=== PATIENT | female | born 1990 | race Two or more races ===

== ENCOUNTER 2023-09-05 16:47 | Inpatient (IN) | payer MEDICAID, OTHER, SELFPAY ==
--- OUTSIDE RECORDS SUMMARY | 2023-09-05 16:50 | XMS_ITS | Continuity of Care Document ---
Author Organization [facility] Address [address] [place] [address]- Care Team Providers Care Belt Polisher Name Role Phone Bahman Moise NP Primary Care Physician Encounter [facility] ACCT R [id number] Date(s): 05/22/23 - 06/21/[address] [address]- Attending Physician: Rojas Angeles Admitting Physician: AdmtrRojas Referring Physician: AdmtrRojas Allergies, Adverse Reactions, Alerts No Known Allergies Immunizations Given and Recorded Vaccine Date Status Refusal Reason tetanus/diphtheria/pertussis, acel(Tdap) 01/06/21 Given Human Papillomavirus Vaccine 08/22/18 Given Human Papillomavirus Vaccine 04/18/18 Given Human Papillomavirus Vaccine 12/27/17 Given Medications bacitracin topical 500 u/gm ointment 1 application, Topically, 3 times a day, for 7 days, apply to affected skin, # 30 Gm, 0 Refills, Acute 06/26/23 10:58:00 EDT, 06/19/23 10:58:00 EDT, Ointment, [facility], Partial fill upon patient request if the prescription is for a tyron... Start Date: 06/19/23 Stop Date: 06/26/23 Status: Ordered Mirena 52 mg intrauteral device 1 each = 52 mg, Intrauterine, Once, # 1 each, 0 Refills, Soft Stop, 04/24/13 8:49:46, 1 each Intrauterine Once Start Date: 04/24/13 Status: Ordered Truvada 200 mg-300 mg oral tablet 1 tablet, By Mouth, Daily, # 90 tablet, 4 Refills, Maintenance, 04/05/22 11:01:00 EST, Tablet, [id number], Partial fill upon patient request if the prescription is for a schedule II opioid drug., 1 tablet By Mouth Daily, 169, cm, 04/05/22 10:2... Start Date: 04/05/22 Status: Ordered Problem List Condition Confirmation Course Effective Dates Status Health St at[facility] Informant Light cigarette smoker (1-9 cigs/day) Confirmed Active Obese class I Confirmed Active Social History Social History Type Response Smoking Status Current every day francisca oker; Type: Cigarettes; Interested in cessation: Yes; Tobacco use times per day: 5 daily; Number of years: 6; Started at age: 19; entered on: 09/19/16 Sex Patient Care team information Care Team Personnel Name: Bahman Moise NP Position: Reference Physician Member Role: PCP Care Team Related Persons Name: ABDULLAHI GREGG Address: home [address] [place] [address] Name: TYREE SAUCEDA Address: home [address] [place] [address] Name: ERIC TOPETE Address: home [address] [place] [address]
--- OUTSIDE RECORDS SUMMARY | 2023-09-05 16:50 | XMS_ITS | Continuity of Care Document ---
Author Organization [facility] ter Address [address] [place] [address]- Care Team Providers Care Unix Systems Administrator Name Role Phone Jose Maria CALLAHAN, Bahman Primary Care Physician Encounter [facility] Date(s): 01/06/21 - 01/06/[address] [address]- Encounter Diagnosis Alcohol intoxication(Final) - 01/06/21 Discharge Disposition: A-D/C Home Attending Physician: Benedict Brooks MD Admitting Physician: Benedict Brooks MD Referring Physician: Not on Staff, Referring MD Allergies, Adverse Reactions, Alerts Substance Reaction Severity Status NKA Active Immunizations Given and Recorded Vaccine Date Status Refusal Reason tetanus/diphtheria/pertussis, acel(Tdap) 01/06/21 Given Human Papillomavirus Vaccine 08/22/18 Given Human Papillomavirus Vaccine 04/18/18 Given Human Papillomavirus Vaccine 12/27/17 Given Medications Mirena 52 mg intrauteral device 1 each = 52 mg, Intrauterine, Once, # 1 each, 0 Refills, Soft Stop, 04/24/13 8:49:46, 1 each Intrauterine Once Start Date: 04/24/13 Status: Ordered Problem List Condition Effective Dates Status Health Status Inform ant Light cigarette smoker (1-9 cigs/day)(Confirmed) Active Vital Signs Most recent to oldest [Reference Range]: 1 2 3 Oxygen Saturation [94-100 %] 100 % (01/06/21 8:00 AM) 99 % (01/06/21 6:00 AM) 98 % (01/06/21 4:05 AM) Pulse Rate [55-90 bpm] 95 bpm *H* (01/06/21 8:00 AM) 97 bpm *H* (01/06/21 6:00 AM) 98 bpm *H* (01/06/21 4:05 AM) Blood Pressure [90-138/55-84 mm Hg] 109/61mm Hg (01/06/21 8:00 AM) 122/65mm Hg (01/06/21 6:00 AM) 125/68mm Hg (01/06/21 4:05 AM) Respiratory Rate [16-30 br/min] 18 br/min (01/06/21 8:00 AM) 16 br/min (01/06/21 6:00 AM) 15 br/min *L* (01/06/21 4:05 AM) Temperature [96.8-100.4 DegF] 97.4 DegF (01/06/21 6:00 AM) 97.6 DegF (01/06/21 4:05 AM) Mode of Delivery (Oxygen) Room air (01/06/21 8:00 AM) Room air (01/06/21 6:00 AM) Room air (01/06/21 4:05 AM) Blood pressure sites Arm, left (01/06/21 8:00 AM) Arm, left (01/06/21 6:00 AM) Arm, left (01/06/21 4:05 AM) Temperature Route Axillary (01/06/21 6:00 AM) Axillary (01/06/21 4:05 AM) Social History Social History Type Response Smoking Status Current every day francisca chang; Type: Cigarettes; Interested in cessation: Yes; Tobacco use times per day: 5 daily; Number of years: 6; Started at age: 19; entered on: 09/19/16 Sex
--- OUTSIDE RECORDS SUMMARY | 2023-09-05 16:50 | XMS_ITS | Continuity of Care Document ---
Author Organization [facility] Address [address] [place] [address]- Care Team Providers Care Scrap Stripper Hand Name Role Phone Jose Maria CALLAHAN, Bahman Primary Care Physician Unavail able [facility]counter [facility] Date(s): 10/05/19 - 11/04/19 [facility] [address] [address]- [facility] Allergies, Adverse Reactions, Alerts Substance Reaction Severity Status NKA Active Immunizations Given and Recorded Vaccine Date Status Refusal Reason Human Papillomavirus Vaccine 08/22/18 Given Human Papillomavirus Vaccine 04/18/18 Given Human Papillomavirus Vaccine 12/27/17 Given Medications Flagyl 500 mg oral tablet 4 tablet = 2,000 mg, By Mouth, Once, # 4 tablet, 0 Refills, Soft Stop, 01/03/17 16:56:41 Start Date: 01/03/17 Status: Ordered Mirena 52 mg intrauteral device 1 each = 52 mg, Intrauterine, Once, # 1 each, 0 Refills, Soft Stop, 04/24/13 8:49:46, 1 each Intrauterine Once Start Date: 04/24/13 Status: Ordered Problem List Condition Effective Dates Status Health Status Inform ant Light cigarette smoker (1-9 cigs/day)(Confirmed) Active Social History Social History Type Response Smoking Status Current every day sm oker; Type: Cigarettes; Interested in cessation: Yes; Tobacco use times per day: 5 daily; Number of years: 6; Started at age: 19; entered on: 09/19/16 Sex
--- OUTSIDE RECORDS SUMMARY | 2023-09-05 16:50 | XMS_ITS | Continuity of Care Document ---
Author Organization [facility] Address [address] [place] [address]- Care Team Providers Care Keg Washer Name Role Phone Jose Maria CALLAHAN, Bahman Primary Care Physician [facility] Date([facility]): 08/10/20 - [facility] [address] [address]- Allergies, Adverse Reactions, Alerts Substance Reaction Severity [...]
--- OUTSIDE RECORDS SUMMARY | 2023-09-05 16:50 | XMS_ITS | Continuity of Care Document ---
Author Organization [facility] [facility] Address [address] [place] [address], [place] [address]- Care Team Providers Care Skip Load Driver Name Role Phone Bahman Moise NP Primary Care Physician [phone] [id number] Date[facility] - [facility]09/23 [facility] [address] [facility] [place], [place] [address] Allergies, Adverse Reactions, Alerts No Known Allergies [...] Persons Name: ABDULLAHI GREGG Address: home [address] [place] [address] Name: TYREE SAUCEDA Address: home [address] [place] [address] Name: ERIC TOPETE Address: [address] [place] [address]
--- OUTSIDE RECORDS SUMMARY | 2023-09-05 16:50 | XMS_ITS | Continuity of Care Document ---
Author Organization [facility] Address [address] [place] [address]- Care Team Providers Care Highway Traffic Control Technician Name Role Phone Jose Maria CALLAHAN, Bahman Primary Care Physician [phone] Encounter [facility] Date(s): 08/17/20 - 09/16/20 [facility] [address] [address]- Allergies, Adverse Reactions, Alerts Substance Reaction Severity [...]
--- OUTSIDE RECORDS SUMMARY | 2023-09-05 16:50 | XMS_ITS | Continuity of Care Document ---
Author Organization [facility] Address [address] [place] [address]- Care Team Providers Care Cyber Defense Analyst Name Role Phone Bahman Moise NP Primary Care Physician Encounter [facility] Date(s): 02/04/23 - 03/06/[address] [address] Allergies, Adverse Reactions, Alerts No Known Allergies [...] Persons Name: ABDULLAHI GREGG Address: home [address] [place] [address] Name: TYREE SAUCEDA Address: home [address] [place] [address] Name: ERIC TOPETE Address: home [address] [place] [address]
--- OUTSIDE RECORDS SUMMARY | 2023-09-05 16:50 | XMS_ITS | Continuity of Care Document ---
Author Organization [facility] Address [address] [place] [address]- Care Team Providers Care Radiation Engineer Name Role Phone Jose Maria CALLAHAN, Bahman Primary Care Physician Encounter [facility] Date(s): 01/31/21 - 04/15/21 [facility] [address] [address] Attending Physician: Not on Staff, Attending MD Allergies, Adverse Reactions, Alerts No Known Allergies [...]
--- OUTSIDE RECORDS SUMMARY | 2023-09-05 16:50 | XMS_ITS | Continuity of Care Document ---
Author Organization [facility] Address [address] [place] [address]- Care Team Providers Care Marketing Officer Name Role Phone Bahman Moise NP Primary Care Physician [id number] Date(s): 05/20/23 - 06/21/[address] [address] Attending Physician: Not on Staff, Attending [...] 06/26/23 10:58:00 EDT, 06/19/23 10:58:00 EDT, Ointment, [facility], Partial fill upon patient request [...] 4 Refills, Maintenance, 04/05/22 11:01:00 EST, Tablet, [id number], Partial fill upon patient request if [...] Persons Name: ABDULLAHI GREGG Address: home [address] [place] [address] Name: TYREE SAUCEDA Address: home [address] [place] [address] Name: ERIC TOPETE Address: [address] [place] [address]
--- OUTSIDE RECORDS SUMMARY | 2023-09-05 16:50 | XMS_ITS | Continuity of Care Document ---
Author Organization [facility] Address [address] [place] [address]- Care Team Providers Care Dewaterer Operator Name Role Phone Bahman Moise NP Primary Care Physician [phone] Encounter [facility] Date(s): 04/05/22 - 05/05/[address] [address]- Attending Physician: Rojas Angeles Admitting Physician: Rojas Angeles Referring Physician: AdmtrRojas Allergies, Adverse Reactions, Alerts [...] Related Persons Name: ABDULLAHI GREGG Address: home [address] [place] [address] Name: TYREE SAUCEDA Address: [place] [address] Name: ERIC TOPETE Address: home [address] [place] [address]
--- OUTSIDE RECORDS SUMMARY | 2023-09-05 16:50 | XMS_ITS | Continuity of Care Document ---
Author Organization [facility] Address [address] [place] [address]- Care Team Providers Care Rug Dyer Helper Name Role Phone Bahman Moise NP Primary Care Physician Encounter [facility] Date(s): 02/19/23 - 06/19/[address] [address] Attending Physician: Not on Staff, Attending MD [...] 06/26/23 10:58:00 EDT, 06/19/23 10:58:00 EDT, Ointment, [facility], Partial fill upon patient [...] 4 Refills, Maintenance, 04/05/22 11:01:00 EST, Tablet, [id number], Partial fill upon patient request if [...] Persons Name: ABDULLAHI GREGG Address: [address] [place] [address] Name: TYREE SAUCEDA Address: [address] [place] [address] Name: ERIC TOPETE Address: home [address] [place] [address]
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
--- OUTSIDE RECORDS SUMMARY | 2023-09-05 16:50 | XMS_ITS | Continuity of Care Document ---
Author Organization [facility] Address [address] [place] [address]- Care Team Providers Care Building Dismantler Name Role Phone Jose Maria CALLAHAN, Bahman Primary Care Physician Encounter [facility] Date(s): 08/17/20 - 09/16/20 [facility] [address] [address] Attending Physician: Rojas Angeles Admitting Physician: Rojas Angeles Referring Physician: Rojas Angeles Allergies, Adverse Reactions, Alerts Substance Reaction Severity [...]
--- OUTSIDE RECORDS SUMMARY | 2023-09-05 16:50 | XMS_ITS | Continuity of Care Document ---
Author Organization [facility] ter Address [address] [place] [address]- Care Team Providers Care Printed Circuit Board Panels Deburrer Name Role Phone Jose Maria CALLAHAN, Bahman Primary Care Physician Encounter [facility] Date(s): 12/01/20 - 12/01/[address] [address]- Discharge Disposition: A-D/C Home Attending Physician: Montrell Alex MD Admitting Physician: Montrell Alex MD Referring Physician: Not on Staff, Referring [...] 3 Oxygen Saturation [94-100 %] 100 % (12/01/20 12:31 PM) 99 % (12/01/20 6:12 AM) 99 % (12/01/20 4:05 AM) Pulse Rate [55-90 bpm] 72 bpm (12/01/20 12:31 PM) 84 bpm (12/01/20 6:12 AM) 107 bpm *H* (12/01/20 4:05 AM) Blood Pressure [90-138/55-84 mm Hg] 122/79mm Hg (12/01/20 12:31 PM) 114/68mm Hg (12/01/20 6:12 AM) 134/79mm Hg (12/01/20 4:05 AM) Respiratory Rate [16-30 br/min] 16 br/min (12/01/20 12:31 PM) 16 br/min (12/01/20 6:12 AM) 18 br/min (12/01/20 4:05 AM) Temperature [96.8-100.4 DegF] 97.4 DegF (12/01/20 12:31 PM) 98.6 DegF (12/01/20 4:05 AM) Mode of Delivery (Oxygen) Room air (12/01/20 12:31 PM) Room air (12/01/20 6:12 AM) Room air (12/01/20 4:05 AM) Blood pressure sites Arm, left (12/01/20 12:31 PM) Temperature Route Oral (12/01/20 12:31 PM) Social History Social History Type Response Smoking Status Current every day francisca chang; Type: Cigarettes; Interested in cessation: Yes; Tobacco use times per day: 5 daily; Number of years: 6; Started at age: 19; entered on: 09/19/16 Sex
--- OUTSIDE RECORDS SUMMARY | 2023-09-05 16:50 | XMS_ITS | Continuity of Care Document ---
Author Organization [facility] Address [address] [facility], [address] [place] [address]- Care Team Providers Care Manufacturing Inspector Name Role Phone Jose Maria CALLAHAN, Bahman Primary Care Physician Encounter [facility] Date(s): 04/24/21 - 05/24/21 [facility] [address] [facility] [place], [place] [address] Allergies, Adverse Reactions, Alerts No Known [...] ant Light cigarette smoker (1-9 cigs/day)(Confirmed) Active Obese class I(Confirmed) Active Social History Social History Type Response Smoking Status Current every day sm oker; Type: Cigarettes; Interested in cessation: Yes; Tobacco use times per day: 5 daily; Number of years: 6; Started at age: 19; entered on: 09/19/16 Sex
--- OUTSIDE RECORDS SUMMARY | 2023-09-05 16:50 | XMS_ITS | Continuity of Care Document ---
Author Organization [facility] Address [address] [place] [address]- Care Team Providers Care Psychological Anthropologist Name Role Phone Jose Maria CALLAHAN, Bahman Primary Care Physician Encounter [facility] Date(s): 10/05/19 - 12/10/19 [facility] [address] [address]- [facility] Attending Physician: Not on Staff, Attending MD Allergies, Adverse Reactions, Alerts Substance Reaction [...]
--- OUTSIDE RECORDS SUMMARY | 2023-09-05 16:50 | XMS_ITS | Continuity of Care Document ---
Author Organization [facility] Address [address] [place] [address]- Care Team Providers Care Procurement Intern Name Role Phone Jose Maria CALLAHAN, Bahman Primary Care Physician Encounter [facility] Date(s): 11/10/19 - 12/10/19 [facility] [address] [address]- [facility] Attending Physician: Rojas Angeles Admitting Physician: Rojas [...]
--- OUTSIDE RECORDS SUMMARY | 2023-09-05 16:50 | XMS_ITS | Continuity of Care Document ---
Author Organization [facility] Address [address] [place] [address]- Care Team Providers Care Professor Of Spanish Name Role Phone Jose Maria CALLAHAN, Bahman Primary Care Physician [facility]counter [facility] Date(s): 04/17/21 - 06/28/21 [facility] [address] [address]- Attending Physician: Not on Staff, Attending MD [...]
--- OUTSIDE RECORDS SUMMARY | 2023-09-05 16:50 | XMS_ITS | Continuity of Care Document ---
Author Organization [facility] Address [address] [place] [address]- Care Team Providers Care Needle Loom Setter Name Role Phone Jose Maria CALLAHAN, Bahman Primary Care Physician [facility]counter [facility] Date(s): 08/10/20 - 09/16/20 [facility] [address] [address]- Attending Physician: Not on Staff, Attending MD [...]
--- OUTSIDE RECORDS SUMMARY | 2023-09-05 16:50 | XMS_ITS | Continuity of Care Document ---
Author Organization [facility] Address [address] [place] [address]- Care Team Providers Care Motion Study Analyst Name Role Phone Jose Maria CALLAHAN, Bahman Primary Care Physician En[facility] Date(s): 05/29/21 - 06/28/[address] [address] Attending Physician: Rojas Angeles Admitting Physician: Rojas Angeles Referring Physician: AdmRojas judd Allergies, Adverse Reactions, Alerts No Known Allergies [...]
--- OUTSIDE RECORDS SUMMARY | 2023-09-05 16:51 | XMS_ITS | Continuity of Care Document ---
Author Organization [facility] Address [address] [place] [address]- Care Team Providers Care Label Operator Name Role Phone Bahman Moise NP Primary Care Physician Encounter [facility] Date(s): 04/10/22 - 05/10/[address] [address] Allergies, Adverse Reactions, Alerts No Known Allergies [...] 6; Started at age: 19; entered on: 7/12/17 Sex Patient Care team information Care Team Personnel Name: Bahman Moise NP Position: Reference Physician Member Role: PCP Care Team Related Persons Name: MARYSOL ABDULLAHI Address: home [address] [place] [address] Name: TYREE SAUCEDA Address: home [address] [place] [address] Name: ERIC TOPETE Address: home [address] [place] [address]
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
--- OUTSIDE RECORDS SUMMARY | 2023-09-05 16:51 | XMS_ITS | Continuity of Care Document ---
Author Organization [facility] Address [address] [place] [address]- Care Team Providers Care Chain Mender Name Role Phone Jose Maria CALLAHAN, Bahman Primary Care Physician [phone] [facility]counter [facility] Date(s): 10/06/20 - 11/05/20 [facility] [address] [address]- Allergies, Adverse Reactions, Alerts Substance Reaction Severity [...]
--- OUTSIDE RECORDS SUMMARY | 2023-09-05 16:51 | XMS_ITS | Continuity of Care Document ---
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 superficial right wrist abrasion. Laceration was repaired in the ED. On tertiary exam there wereno new findings and cervical collar was cleared. Seen by social work who cleared her for home and she was given appropriate resources. Patient is appropriate for discharge at this time. ?? Injuries:?? Acute EtoH intoxication Cocaine use Right forehead abrasion with two cm laceration overlying the right eyebrow (repaired - see procedure note) Right radial wrist abrasion ?? Plan Discharge from ED Bacitracin to laceration No follow up needed for suture removal (dissolvable) Follow up with social work resources and trauma surgery only as needed ?? Please page??Trauma Surgery??with any additional questions or??concerns: [id number] Daniel Stratton MD. ?? Intake and Output Intake and Output Results?? No results in record. Labs Last 24 Hours BLOOD COUNT & DIFF ? Event Name?? Event Result?? Date/Time?? WBC 10.9 k/mm3 06/18/23 23:07:00 RBC 4.24 m/mm3 06/18/23 23:07:00 Hgb 13.4 Gm/dL 06/18/23 23:07:00 Hct 40.1 % 06/18/23 23:07:00 MCV 94.6 femtoliters 06/18/23 23:07:00 MCH 31.6 pg 06/18/23 23:07:00 MCHC 33.4 g/dL 06/18/23 23:07:00 Platelet Count 396 k/mm3 06/18/23 23:07:00 MPV 9 femtoliters??Low 06/18/23 23:07:00 Nucleated RBC (Automated) 0 #/100 WBC'S 06/18/23 23:07:00 ? COAG ? Event Name?? Event Result?? Date/Time?? INR 1 06/18/23 23:07:00 Protime (PT) 10.3 seconds 06/18/23 23:07:00 APTT 24.8 seconds 06/18/23 23:07:00 ? CHEM GENERAL ? Event Name?? Event Result?? Date/Time?? Sodium 140 mmol/L 06/18/23 23:07:00 Chloride 104 mmol/L 06/18/23 23:07:00 Bicarbonate Level 22 mmol/L 06/18/23 23:07:00 Anion Gap 14 06/18/23 23:07:00 Glucose Level 90 mg/dL 06/18/23 23:07:00 BUN 12 mg/dL 06/18/23 23:07:00 Creatinine-Blood 0.8 mg/dL 06/18/23 23:07:00 Amylase 47 units/L 06/18/23 23:07:00 ? * Daniel Stratton MD: PERFORM Event Display: Progress Note Hospital Authored Date: I have seen and examined the patient, the above note summarizes my encounter on the recorded date Note * Daniella Pena MD: PERFORM Event Display: Patient Education Leaflets Authored Date: Alcohol and Substance Abuse Disorder Resources ?? 703 Alcohol & Substance Use Disorder Resources? Short-term Detox Programs ?? - you can call these facilities directly to see if a bed is available ??? however, you may be told to call back every 2 hours ??? if you are told this, PLEASE follow those instructions! Bed availability can change very quickly! ? [facility] ??? ([place] ??? provides transportation) ??? [facility] ??? [phone] ([place]) ??? [facility] ([facility]eterans only) ??? [phone] ([place] ??? [facility] ??? [phone] ([place]) ??? [facility] ??? [facility]- ([place]) ??? [facility] ??? / [phone] ([place]) ??? [facility] -?? [phone] ([place]) ??? [facility] ??? / ([place]) ??? [facility] - [phone] ([place]) ??? [facility] - [phone] ([place]) ??? [facility] - [phone] ([place]) ??? [facility] - [phone] ([place]) ??? [facility] [place] - [phone] ??([place]) ??? [facility] - [phone] ([place]) ??? [facility] - [phone] ([place]) ???[facility] - [phone] ([place]) ??? [facility] - [phone] ([place]) ??? [facility] - [phone] - ([place]) ??? [facility] - [phone] ([place]) ??? [facility] - [phone] ([place]) ??? [facility] - [phone] ([place]) ??? [facility] - [phone] ([place]) ??? [facility] - [phone] ([place]) ??? [facility] - [phone] ([place]) ??? [facility] - [phone] ([place]) ??? [facility] - [phone] ([place]) ??? [facility] ??? [phone] Intensive Outpatient / Day Treatment Programs ??? some programs offer mornings, some evenings, someboth. Call for more information. Can usually call directly for an intake appointment. Some insurances may require a referral from your doctor. ? [facility] ??? IOP ??? [phone] ([place]) ??? [facility] ??? IOP ??? [phone] ([place]) ??? [facility] ??? IOP ??? [phone] ([place]) ??? [facility] ??? [facility] ??? IOP ??? [phone] ([place]) ??? [facility] -IOP- [phone] or [phone] ?? Outpatient Clinics Specializing in Substance Use Disorder Treatment ??? call directly for information or an intake appointment ??? [facility] - [phone] ([place]) ??? [facility] - [phone] ([place]) ??? [facility] - [phone] ??? [facility] - [phone] ([place]) ??? [facility] - [phone] ([place]) ??? [facility] - [phone] ([place]), ([place]), ([place]) ??? [facility] ([place])- [phone] ([place]) ??? [facility] - [phone] ([place]) ??? [facility] - [phone] ([place]) ??? [facility] - [phone] ([place]) ??? [facility] - [phone] ([place]) ??? [facility] - [phone] ([place]) ??? [facility] - [phone] ([place]) ??? [facility] - [phone] ([place]) ??? [facility] - [phone] ([place]) ??? [facility] - [phone] ([place]) ??? [facility] - [phone] ([place]) ??? [facility] - [phone] ([place]) ? ? [facility] - [phone] ([place]) ??? [facility] - [phone] ([place]) ?? Medication Assisted Treatment Programs ??? Call directly for information or for intake ?? Methadone ??? [facility] ([place]) - [phone] ([place]) ??? [facility] - ??[phone] ([place]) ??? Health Care [facility] Centers?? Multiple Locations ??? Call Main # ??for intake at any site ??? [phone] ??? [facility] ??? [phone] ??? [place] (methadone, suboxone & vivitrol) Suboxone, Vivitrol, Sublocade (Call for information) ??? [facility] ??? [phone] ([place]) ??? [facility] ??? [phone] ([place]) ??? [facility] ([place]) - [phone] ([place]) ??? [facility] ??? [phone] ([facility], Main #) ??? [facility] - [phone] ([facility] Main #) ??? [facility] ??? ([place] ) [phone] ?? CSS & Long-Term Residential Programs ? Typically require a referral from a detox or other interim residential program ??? call for information ??? [facility] ??? men ??? [phone] ([place]) ??? [facility] ??? women ??? [phone] ([place]) ??? [facility] ??? men - ([place]) ??? [facility] ??? men/women ??? 1- ([place]) ??? [facility] ??? men/women [phone] ([place]) ??? [facility] ??? women ??? Intake: [phone]; ([place]) ??? [facility] ??? Men - [phone] ([place]) ??? [facility] ??? women ??? [phone] ([place]) ??? [facility] - [phone] ([place]) ??? [facility] ??? Des ([facility]) - (intake) ??? [facility] ??? woman w/ children ??? [phone] ??? ([place]) ??? [facility] ??? men/women [phone] ([place]) ??? [facility] ??? men ??? [phone] ([place]) ??? [facility] ??? women ??? [phone] ([place]) ??? [facility] ??? men/women - [phone] ([place]) ??? [facility] ??? men/women - [phone]. [phone] ([place]) ??? [facility] - men/women - [phone] - ([place]) ??? [facility] - men/women - Intake - ??? ([place]) ??? [facility] CSS - men/women - [phone] ([place]) ??? [facility] [facility] ??? Des ([facility]) - (intake) ?? Hotlines ??? To find a meeting or for peer support ??? Alcoholics Anonymous ??? [phone] ??? Narcotics Anonymous ? Gamblers Anonymous ? Support for Families & Friends ? To find a meeting or for peer support ? ? Al-Anon ? [phone], ??? Jose-Anon ??? [phone] ??? Al-A-Teen ??? [phone] ??? Learn to [place] ??? [phone] www.ajftc9dupk.org For Additional Resources Statewide call: ?? [place] Substance Abuse Information Hotline ? (01/10) To search online for MAR services and possible bed availability (local & statewide): https://www.PaeDae ?? Click on ???substance use search?? and ??use the drop-down box to choose type of facility (ATS = detox) ? * Daniella Pena MD: PERFORM Event Display: Patient Education Leaflets Authored Date: Alcohol Abuse ?? [id number] Alcohol Abuse Alcoholic drinks harm you when you have too many of them. No set number of drinks means too much. Drinking that affects your life or your health is called alcohol abuse. Alcohol abuse can hurt your relationships with others. You may lose friends, a spouse, or even your job. You may be abusing alcohol if any of the following are true for you: ??? Duties at home or with child protection specialist suffer because of drinking. ??? Duties at work or in school suffer because of drinking. ??? You have missed work or school because of drinking. ??? You use alcohol while driving or using machinery. ??? You have legal problems such as arrests because of drinking. ??? You keep drinking even though it causes serious problems in your life. Health problems Alcohol abuse causes many health problems.??Sometimes this can happen after only drinking a ???little. ??The effects depend on how much you drink at one time and how often you drink. The effects also depend on how long you drink. For example, months, years, or decades.??Alcohol affects all parts of your body Brain Alcohol affects the central nervous system. It can damage parts of the brain that control your balance and gait, memory, thinking, and emotions. It can cause: ??? Memory loss ??? Blackouts ??? Depression ??? Agitation ??? Sleep problems ??? Seizures These changes may be intermodal dispatcher (permanent). Heart and blood vessels Alcohol can damage heart muscle (cardiomyopathy). This can lead to: ??? Trouble breathing ??? Irregular heartbeat ??? Atrial fibrillation ??? Leg swelling ??? Heart failure Alcohol also makes the blood vessels stiff. This causes high blood pressure. All of these problems raise your risk of having a heart attack or stroke. Liver Alcohol causes fat to build up in the liver. This affects how the liver works. Alcohol also raises the risk for hepatitis. It can cause: ??? Belly (abdominal) pain ??? Belly swelling ??? Loss of appetite ??? Yellowed eyes or skin (jaundice) ??? Bleeding problems ??? Cirrhosis This can make it harder for you to fight off infections. The liver changes keep it from removing toxins in your blood that can cause brain disease (encephalopathy). This condition cause: ??? Confusion ??? Changed level of consciousness ??? Personality changes ??? Memory loss ??? Seizures, coma, and The liver changes can also cause the veins in your esophagus and stomach to become thin and swollenwith blood (varices). This can cause bleeding and vomiting of blood. Pancreas Alcohol can cause swelling (inflammation) of the pancreas (pancreatitis). This can cause belly pain, fever, and diabetes. Immune system Alcohol weakens your immune system. This makes it harder for you to fight infections and colds. It also makes it more likely for you to get pneumonia and tuberculosis. Cancer Alcohol raises the risk for several types of cancer. These include cancer of the mouth, esophagus, pharynx, larynx, liver, and breast. Sexual function Alcohol can lead to sexual problems. ?? Home care These guidelines will help you deal with alcohol abuse: ??? Admit you have a problem with alcohol. ??? Ask for help from your healthcare provider. Also ask for help from trusted family members or close friends. ??? Get help from people trained in dealing with alcohol abuse. This may be one-on-one counseling or group therapy. Or it may be an alcohol treatment program. ??? Join a self-help group for alcohol abuse such as Alcoholics Anonymous. ??? Stay away from people who abuse alcohol or tempt you to drink. ?? Follow-up care Follow up with your healthcare provider, or as advised. Contact these groups to get help: ??? Alcoholics Anonymous (AA) at www.aa.org. Or check the phone book for meetings near you. ??? National Alcohol and Substance Abuse Information Center (NASAIC) at www.addictioncareRivono.[place] or 288-813-7789 ??? National [place] on Alcoholism and Drug Dependence (NCADD) at www.ncadd.org or 238-JWR-SCSG (647-519-6042) ?? Call 911 Call 911 if any of these occur: ??? Trouble breathing or slow, irregular breathing ??? Chest pain ??? Sudden weakness on one side of your body or sudden trouble speaking ??? Heavy bleeding or vomiting blood ??? Very drowsy or trouble awakening ??? Fainting or loss of consciousness ??? Rapid heart rate ??? Seizure ?? When to seek medical care Call your healthcare provider right away if any of these occur:? Confusion ??? Seeing, hearing, or feeling things that aren???t there (hallucinations) ??? Pain in your upper belly that gets worse ??? Vomiting that continues, vomiting with blood, or black or tarry stools ??? Severe shakiness ?? Last Reviewed Date: 2021 ?? The [employer]. All rights reserved. This information is not intended as a substitute for professional medical care. Always follow your healthcare professional's instructions. ?? Patient Care team information Care Team Personnel Name: Bahman Moise NP Position: Reference Physician Member Role: PCP Care Team Related Persons Name: ABDULLAHI GREGG Address: [address] [place] [address] Name: TYREE MACHADO Address: [address] [place] [address] Name: ERIC TOPETE Address: home [address] [place] [address]
[2023-09-05 18:06] VITALS: BMI 34.5
[2023-09-05 18:08] VITALS: BP 105/57; PULSE 61; RESP 16; TEMP 36.9
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
[2023-09-05] MEDS: traZODone HCL 50 MG TABLET PO (21:20)
[2023-09-05] MEDS: hydrOXYzine HCL 25 MG TABLET PO (21:20)
[2023-09-05] MEDS: Acetaminophen 325 MG TABLET 650 MG PO (21:20)
[2023-09-05 21:24] VITALS: BP 100/65; PULSE 70; RESP 16; TEMP 36.9
[2023-09-06 07:42] VITALS: BP 93/54; PULSE 61; RESP 14; TEMP 36.9; O2SAT 100
[2023-09-06 09:13] LABS: Estimated Average Glucose 88 mg/dL; Hemoglobin A1c % 4.7 % (<6.0)
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
[2023-09-06] MEDS: Emtricitabin/Tenofovir 200/300 TABLET 1 TAB PO (09:16)
[2023-09-06] MEDS: Chlorhexidine Gluc Oral Rinse 15 ML MOUTHWASH BUCCAL ×2 (09:17→21:20)
[2023-09-06 09:30] LABS: Cholesterol 110 mg/dL (<200); HDL Cholesterol 34 mg/dL (>40); LDL Cholesterol Calculated 63 mg/dL (<100); Triglycerides 67 mg/dL (<150)
[2023-09-06 09:47] LABS: Free T4 (Free Thyroxine) 0.77 ng/dL (0.71-1.85); Thyroid Stimulating Hormone 0.51 uIU/mL (0.32-4.0)
[2023-09-06 10:00] LABS: Vitamin B12 248 pg/mL (200-900)
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
[2023-09-06 18:00] VITALS: BP 121/68; PULSE 109; RESP 16; TEMP 36.4; O2SAT 97
[2023-09-06] MEDS: traZODone HCL 25 MG HALFTAB PO (21:19)
[2023-09-06] MEDS: Acetaminophen 325 MG TABLET 650 MG PO (21:20)
[2023-09-06 21:49] VITALS: BP 96/49; PULSE 70; RESP 16; TEMP 36.9; O2SAT 95
[2023-09-07 07:25] VITALS: BP 83/48; PULSE 67; RESP 14; TEMP 36.4; O2SAT 98
[2023-09-07] MEDS: Emtricitabin/Tenofovir 200/300 TABLET 1 TAB PO (09:13)
[2023-09-07] MEDS: Sertraline HCL 25 MG TABLET 12.5 MG PO (09:13)
[2023-09-07] MEDS: Chlorhexidine Gluc Oral Rinse 15 ML MOUTHWASH BUCCAL ×2 (09:14→20:45)
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
[2023-09-07 17:25] VITALS: BP 112/56; PULSE 78; RESP 14; O2SAT 99
[2023-09-07] MEDS: traZODone HCL 25 MG HALFTAB PO (20:45)
[2023-09-08] MEDS: traZODone HCL 25 MG HALFTAB PO ×2 (01:06→20:36)
[2023-09-08 07:57] VITALS: BP 97/55; PULSE 67; RESP 18; TEMP 36.8; O2SAT 94
[2023-09-08] MEDS: Emtricitabin/Tenofovir 200/300 TABLET 1 TAB PO (09:54)
[2023-09-08] MEDS: Sertraline HCL 25 MG TABLET 12.5 MG PO (09:54)
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
[2023-09-08] MEDS: Chlorhexidine Gluc Oral Rinse 15 ML MOUTHWASH BUCCAL (20:36)
[2023-09-08] MEDS: hydrOXYzine HCL 25 MG TABLET PO (20:36)
[2023-09-08] MEDS: Acetaminophen 325 MG TABLET 650 MG PO (20:37)
[2023-09-08 20:39] VITALS: BP 108/62; PULSE 80; RESP 14; TEMP 36.3
[2023-09-09] MEDS: traZODone HCL 25 MG HALFTAB PO ×2 (02:16→23:32)
[2023-09-09 06:00] VITALS: RESP 16
[2023-09-09 08:00] VITALS: BP 98/61; PULSE 73; RESP 18; TEMP 36.8; O2SAT 96
[2023-09-09] MEDS: Emtricitabin/Tenofovir 200/300 TABLET 1 TAB PO (08:34)
[2023-09-09] MEDS: Sertraline HCL 25 MG TABLET 12.5 MG PO (08:34)
[2023-09-09] MEDS: Chlorhexidine Gluc Oral Rinse 15 ML MOUTHWASH BUCCAL ×2 (08:34→23:32)
[2023-09-09 12:00] VITALS: BP 90/52; PULSE 60; RESP 18; TEMP 36.6; O2SAT 97
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
--- NOTE | 2023-09-09 16:04 | MHC.RECOVRN ---
Met with pt in 306 after consult placed to Addiction Medicine for PCP use. Pt had been transferred from [facility] where she had presented for SI and disorganized behavior. Subsequently, pt admitted to [facility] for major depression, PTSD, and PCP use. Pt laying in bed, eyes closed, responds to t/w but keeps eyes closed during conversation. Pt reports she had been in recovery x 9 months, however, had a recurrence a couple days ago when PCP was in what she believed to be marijuana. Pt reports she has been successful in recovery by staying away from it. Pt does not report having any other recovery support. Discussed recovery support treatment and options, declines referrals at this time. Pt provided with written resources as well as t/w contact information. Encouraged pt to reach out with questions or concerns.
[2023-09-10 06:00] VITALS: RESP 16
[2023-09-10] MEDS: Sertraline HCL 25 MG TABLET 12.5 MG PO (09:02)
[2023-09-10] MEDS: Emtricitabin/Tenofovir 200/300 TABLET 1 TAB PO (09:02)
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
== END 2023-09-10 10:24 | disposition home or self-care (01) | DRG 754 ==
PROVIDERS: Clinical Nurse Specialist Psychiatric/Mental Health, Adult; Admitting Provider Psychiatry & Neurology Psychiatry; Visit Provider Psychiatry & Neurology Psychiatry
DX: F32.9 Major depressive disorder, single episode, unspecified (principal); R45.851 Suicidal ideations; F17.210 Nicotine dependence, cigarettes, uncomplicated; F43.10 Post-traumatic stress disorder, unspecified; F16.10 Hallucinogen abuse, uncomplicated; F19.90 Other psychoactive substance use, unspecified, uncomplicated; Z71.6 Tobacco abuse counseling; Z79.899 Other long term (current) drug therapy
CPT/HCPCS: 36415; 80061; 82607; 82746; 83036; 83735; 84439; 84443

== ENCOUNTER → 2023-09-05 16:47 | Outpatient (BNV) | payer MEDICAID, SELFPAY | PROVIDERS: Admitting Provider Psychiatry & Neurology Psychiatry; Visit Provider Student in an Organized Health Care Education/Training Program | DX: Z00.8 Encounter for other general examination (principal) | CPT/HCPCS: 99222 ==

== ENCOUNTER → 2023-09-05 16:47 | Outpatient (BNV) | payer OTHER, SELFPAY | PROVIDERS: Admitting Provider Psychiatry & Neurology Psychiatry; Visit Provider Clinical Nurse Specialist Psychiatric/Mental Health | DX: F32.2 Major depressive disorder, single episode, severe without psychotic features (principal); F16.10 Hallucinogen abuse, uncomplicated; F43.11 Post-traumatic stress disorder, acute | CPT/HCPCS: 99231; 99232 ==